=== PATIENT | male | born 1995 | race African-American/Black ===

== ENCOUNTER 2023-04-07 03:49 | Emergency (ER) | payer MEDICAID, OTHER ==
[~2023-04-07] VITALS: Ht 180.3 cm; Wt 89.9 kg
[2023-04-07] MEDS ORDERED: RISP2TAB28 PO (04:30)
[2023-04-07 06:24] VITALS: BP 124/80; PULSE 64; RESP 16; TEMP 97.8; O2SAT 96
== END 2023-04-07 06:31 | disposition home or self-care (01) ==
LOC: ER 03:49
DX: F20.0 Paranoid schizophrenia (principal); Z76.0 Encounter for issue of repeat prescription

== ENCOUNTER 2023-04-25 08:46 | Emergency (ER) | payer MEDICAID ==
[~2023-04-25] VITALS: Ht 180.3 cm; Wt 90.8 kg
[~2023-04-25 08:46] MED LIST: RISP2TAB28 PO
[2023-04-25 10:40] VITALS: BP 125/85; PULSE 99; RESP 16; TEMP 97.9; O2SAT 95
[2023-04-25] MEDS ORDERED: RISP2TAB28 PO (11:59)
== END 2023-04-25 12:27 | disposition home or self-care (01) ==
LOC: ER 08:46
DX: F20.0 Paranoid schizophrenia (principal); Z76.0 Encounter for issue of repeat prescription

== ENCOUNTER 2023-05-28 15:28 | Emergency (ER) | payer MEDICAID ==
[~2023-05-28] VITALS: Ht 180.3 cm; Wt 91.1 kg
[2023-05-28] MEDS ORDERED: RISP2TAB28 PO (23:31)
[2023-05-28] MEDS ORDERED: risperiDONE 1 MG TAB PO ONE (23:45)
[2023-05-29 00:32] VITALS: BP 110/76; PULSE 72; RESP 18; TEMP 98; O2SAT 97
== END 2023-05-29 00:32 | disposition home or self-care (01) ==
LOC: ER 15:28
DX: F20.0 Paranoid schizophrenia (principal); Z76.0 Encounter for issue of repeat prescription

== ENCOUNTER 2023-10-23 19:55 | Emergency (ER) | payer MEDICAID ==
[~2023-10-23] VITALS: Ht 175.3 cm; Wt 127.0 kg
[2023-10-23 20:03] VITALS: BP 130/66; PULSE 55; RESP 18; TEMP 98.4; O2SAT 99
[2023-10-23] MEDS ORDERED: OMEP-434 PO (23:21)
[2023-10-23] MEDS ORDERED: ALBUAER3 IN (23:21)
== END 2023-10-23 23:42 | disposition home or self-care (01) ==
LOC: ER 19:55
DX: J20.9 Acute bronchitis, unspecified (principal); K29.00 Acute gastritis without bleeding; K21.9 Gastro-esophageal reflux disease without esophagitis; F20.9 Schizophrenia, unspecified